=== PATIENT | male | born 1980 | race African-American/Black ===

== ENCOUNTER 2019-05-07 23:18 | Emergency (ER) | payer MEDICAID ==
[~2019-05-07] VITALS: Ht 175.3 cm; Wt 91.0 kg
[2019-05-08] MEDS ORDERED: DIPHENOXYLATE/ATROPINE 2.5/0.025MG TABLET PO ONE (00:45)
[2019-05-08 01:27] LABS: CHLORIDE 101 mEq/L (98-107)
[2019-05-08 01:30] LABS: INR 0.9; PROTHROMBIN TIME 9.7 sec (9.6-11.0)
[2019-05-08 01:37] LABS: BASOPHILS % 0.2 % (0.0-2.0); EOSINOPHILS % 0.5 % (0.0-5.0); HEMATOCRIT. 39.9 % (42.0-52.0); HEMOGLOBIN. 13.8 g/dL (14.0-18.0); LYMPHOCYTES % 17.4 % (20.0-50.0); MEAN CORPUSCULAR HEMOGLOBIN 31.5 pg (28.0-32.0); MEAN CORPUSCULAR VOLUME 91.3 fL (80.0-94.0); MEAN PLATELET VOLUME 8.1 fl (7.4-10.4); MONOCYTES % 8.4 % (2.0-8.0); NEUTROPHILS % 73.5 % (40.0-76.0); PLATELET 212 x1000/uL (130-400); RED BLOOD CELL COUNT 4.37 mill/uL (4.7-6.1); RED CELL DISTRIBUTION WIDTH 14.4 % (11.6-14.6)
[2019-05-08 02:23] LABS: CLARITY URINE CLEAR (CLEAR); COLOR URINE YELLOW (YELLOW); KETONES URINE 3+ (NEGATIVE); LEUKOCYTE ESTERASE URINE NEGATIVE (NEGATIVE); NITRITE URINE NEGATIVE (NEGATIVE); OCCULT BLOOD URINE NEGATIVE (NEGATIVE); PROTEIN URINE TRACE (NEGATIVE)
[2019-05-08] MEDS ORDERED: IOHEXOL-300 100 ML BOTTLE ONE (07:07)
[2019-05-08 08:42] VITALS: BP 158/70
== END 2019-05-08 12:35 ==
LOC: ER 23:54
DX: K52.9 Noninfective gastroenteritis and colitis, unspecified (principal); R11.2 Nausea with vomiting, unspecified; R07.89 Other chest pain; Z59.0 Homelessness
CPT/HCPCS: 36415; 71045; 74177; 80053; 81003; 83690; 84484; 85025; 85610; 93005; 99285; Q9967

== ENCOUNTER 2020-04-29 10:46 | Emergency (ER) | payer MEDICAID ==
[~2020-04-29] VITALS: Ht 175.3 cm; Wt 80.0 kg
[2020-04-29] MEDS ORDERED: HYDROCODONE/ACETAMINOPHEN 5/325MG TABLET PO ONE (11:30)
[2020-04-29] MEDS ORDERED: T3 PO (12:09)
[2020-04-29] MEDS ORDERED: NAPR-1176 MT (12:09)
[2020-04-29 13:04] VITALS: BP 140/88
== END 2020-04-29 13:06 | disposition home or self-care (01) ==
LOC: ER 10:46
DX: S20.213A Contusion of bilateral front wall of thorax, initial encounter (principal); B20 Human immunodeficiency virus [HIV] disease; W01.0XXA Fall on same level from slipping, tripping and stumbling without subsequent striking against object, initial encounter; Y93.55 Activity, bike riding; Y92.9 Unspecified place or not applicable
CPT/HCPCS: 71046; 99283

== ENCOUNTER 2020-08-05 19:40 | Emergency (ER) | payer MEDICAID ==
[~2020-08-05] VITALS: Ht 182.9 cm; Wt 82.0 kg
[~2020-08-05 19:40] MED LIST: NAPR-1176 MT; T3 PO
[2020-08-05 21:36] VITALS: BP 120/88
== END 2020-08-05 21:38 | disposition home or self-care (01) ==
LOC: ER 19:40
DX: F10.129 Alcohol abuse with intoxication, unspecified (principal); Y90.9 Presence of alcohol in blood, level not specified; I10 Essential (primary) hypertension; B20 Human immunodeficiency virus [HIV] disease
CPT/HCPCS: 99283

== ENCOUNTER 2021-03-06 00:24 | Emergency (ER) | payer MEDICAID ==
[~2021-03-06] VITALS: Ht 175.3 cm; Wt 88.0 kg
[2021-03-06 00:55] VITALS: BP 138/80
[2021-03-06] MEDS ORDERED: ONDANSETRON 4MG ODT PO STA (04:09)
[2021-03-06 05:01] LABS: BASOPHILS % 0.6 % (0.0-2.0); EOSINOPHILS % 2.1 % (0.0-5.0); HEMATOCRIT. 39.8 % (42.0-52.0); HEMOGLOBIN. 13.9 g/dL (14.0-18.0); MEAN CORPUSCULAR HEMOGLOBIN 32.3 pg (28.0-32.0); MEAN CORPUSCULAR VOLUME 92.3 fL (80.0-94.0); MEAN PLATELET VOLUME 8.2 fl (7.4-10.4); MONOCYTES % 13.9 % (2.0-8.0); NEUTROPHILS % 30.4 % (40.0-76.0); PLATELET 204 x1000/uL (130-400); RED BLOOD CELL COUNT 4.31 mill/uL (4.7-6.1); RED CELL DISTRIBUTION WIDTH 14.1 % (11.6-14.6)
[2021-03-06 05:10] LABS: CHLORIDE 107 mEq/L (98-107)
[2021-03-06 05:17] LABS: ETHANOL BLOOD 64 mg/dL
== END 2021-03-06 05:40 | disposition home or self-care (01) ==
LOC: ER 00:24
DX: F10.129 Alcohol abuse with intoxication, unspecified (principal); Y90.3 Blood alcohol level of 60-79 mg/100 ml; R11.2 Nausea with vomiting, unspecified; I10 Essential (primary) hypertension; Z98.890 Other specified postprocedural states
CPT/HCPCS: 36415; 71045; 80053; 80320; 83605; 83880; 84484; 85025; 99284; G0480

== ENCOUNTER 2021-05-24 15:36 | Emergency (ER) | payer MEDICAID ==
[~2021-05-24] VITALS: Ht 175.3 cm; Wt 80.0 kg
[2021-05-24 15:38] VITALS: BP 171/87
[2021-05-24] MEDS ORDERED: LORAZEPAM 1MG TABLET PO ONE (16:15)
== END 2021-05-24 17:35 | disposition home or self-care (01) ==
LOC: ER 15:36
DX: F10.20 Alcohol dependence, uncomplicated (principal); F41.9 Anxiety disorder, unspecified; I10 Essential (primary) hypertension; F15.10 Other stimulant abuse, uncomplicated; Y90.9 Presence of alcohol in blood, level not specified
CPT/HCPCS: 93005; 99283